=== PATIENT | female | born 1980 | race Caucasian/White ===

== ENCOUNTER 2020-06-12 18:54 | Emergency (ER) | payer OTHER | END 2020-06-12 19:58 | disposition home or self-care (01) | LOC: ER1 18:54 | DX: S20.219A Contusion of unspecified front wall of thorax, initial encounter (principal); S60.221A Contusion of right hand, initial encounter; V49.40XA Driver injured in collision with unspecified motor vehicles in traffic accident, initial encounter; Y92.410 Unspecified street and highway as the place of occurrence of the external cause | CPT/HCPCS: 71046; 73130; 99283 ==